=== PATIENT | male | born 1995 | race Caucasian/White ===

== ENCOUNTER → 2019-03-18 | Outpatient (CLI) | payer BC, OTHER ==
[~2019-03-18] MED LIST: CALC300T4 PO; PANT40TA2 PO
--- NOTE | 2019-03-18 09:01 | Diagnostic Imaging Report ---
PROCEDURE: US Gallbladder. TECHNIQUE: Multiple real-time grayscale images were obtained over the right upper quadrant in various projections. INDICATION: Right upper quadrant pain. FINDINGS: Visualized portions of the pancreas are normal. The liver is normal. No focal liver lesions are seen. Echogenicity is normal. Gallbladder is normal without wall thickening. The wall measures 2 mm. No stones are seen. No pericholecystic fluid. The common duct measures 3 mm. IMPRESSION: 1. Normal gallbladder. Dictated by: Dictated on workstation # [id number]
== END ==
LOC: RAD 07:43
PROVIDERS: ATTEND Nurse Practitioner Family
DX: K21.9 Gastro-esophageal reflux disease without esophagitis (principal); K58.8 Other irritable bowel syndrome; R10.11 Right upper quadrant pain
CPT/HCPCS: 76705

== ENCOUNTER 2021-01-01 13:40 | Emergency (ER) | payer OTHER ==
[~2021-01-01] VITALS: Ht 187 cm; Wt 61.0 kg
[2021-01-01] MEDS ORDERED: TETANUS,DIPTH,PERTUSS P/F (BOOSTRIX) 0.5 ML VIAL IM ONE (15:00)
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
[2021-01-01] MEDS ORDERED: ACETAMINOPHEN 325 MG TABLET PO STA (15:04)
[2021-01-01] MEDS ORDERED: KETOROLAC 30 MG/ML VIAL IVP STA (15:04)
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
[2021-01-01 15:50] VITALS: BP 157/89
== END 2021-01-01 15:50 | disposition home or self-care (01) ==
LOC: EDUNIT# 13:40 → ER 13:44
DX: S50.811A Abrasion of right forearm, initial encounter (principal); S70.211A Abrasion, right hip, initial encounter; Z23 Encounter for immunization; V89.2XXA Person injured in unspecified motor-vehicle accident, traffic, initial encounter
CPT/HCPCS: 73110; 90715